=== PATIENT | male | born 1955 | race Caucasian/White ===

== ENCOUNTER 2019-05-05 | Emergency (ER) | payer MEDICARE ==
[2019-05-05 08:05] LABS: HEMATOCRIT 44.7 % (39.0-50.0); HEMOGLOBIN 14.9 g/dl (14.0-18.0); IMMATURE GRANULOCYTES 0.7 % (0.0-5.0); MEAN CORPUSCULAR HGB 28.7 pG CALC (26.0-32.0); MEAN CORPUSCULAR HGB CONC 33.3 g/L CALC (32.0-36.0); NEUT# 6.57 thou/uL (1.82-7.42); RED BLOOD COUNT 5.2 mill/uL (4.70-6.10); RED CELL DISTRI WIDTH 12.9 % (11.5-15.5)
[2019-05-05 08:32] LABS: ALBUMIN 4.2 g/dL (3.2-5.0); ALKALINE PHOSPHATASE 92 u/l (38-126); ANION GAP 20 (6-22 (CALC)); BILIRUBIN, TOTAL 1.5 mg/dL (0.0-1.4); BUN 17 mg/dL (8-23); BUN/CREATININE RATIO 19 (12-20 (CALC)); CARBON DIOXIDE 20 mmol/l (22-30); CHLORIDE 97 mmol/l (95-108); CREATININE 0.9 mg/dL (0.7-1.3); GFR > 60 ML/MIN (>=60 (CALC)); GFR FOR AFR.AMER. > 60 ML/MIN (>=60 (CALC)); POTASSIUM 4.1 mmol/l (3.5-5.1); SGOT/AST 29 u/l (19-48); SODIUM 133 mmol/l (137-146); TOTAL PROTEIN 7.5 g/dL (6.3-8.2)
[2019-05-05 10:07] LABS: URINE BILIRUBIN - DIPSTICK NEGATIVE (NEGATIVE); URINE BLOOD DIPSTICK NEGATIVE (NEGATIVE); URINE COLOR YELLOW; URINE GLUCOSE - DIPSTICK >=1000 mg/dL (NEGATIVE); URINE KETONE TRACE mg/dL (NEGATIVE); URINE LEUK ESTERASE NEGATIVE (NEGATIVE); URINE NITRITE - DIPSTICK NEGATIVE (Negative); URINE PH 5.5 (4.5-8.0); URINE PROTEIN - DIPSTICK NEGATIVE (NEG-TRACE); URINE SPECIFIC GRAVITY 1.015; URINE UROBILINOGEN - DIPSTICK 0.2 E.U./dL (0.2)
[2019-05-06] MEDS ORDERED: IBUPROFEN600 MG PO (05:13)
[2019-05-06] MEDS ORDERED: TRAMADOL HCL50 MG PO (05:13)
== END 2019-05-05 11:10 | disposition home or self-care (01) ==
PROVIDERS: Family Medicine
DX: E11.65 Type 2 diabetes mellitus with hyperglycemia (principal); J11.1 Influenza due to unidentified influenza virus with other respiratory manifestations; S01.81XA Laceration without foreign body of other part of head, initial encounter; S01.112A Laceration without foreign body of left eyelid and periocular area, initial encounter; R22.32 Localized swelling, mass and lump, left upper limb; E11.9 Type 2 diabetes mellitus without complications; W01.0XXA Fall on same level from slipping, tripping and stumbling without subsequent striking against object, initial encounter; Y92.481 Parking lot as the place of occurrence of the external cause; Z89.222 Acquired absence of left upper limb above elbow

== ENCOUNTER 2019-05-05 | Emergency (ER) | payer MEDICARE ==
[2019-05-06] MEDS ORDERED: TRAMADOL HCL50 MG PO (05:13)
[2019-05-06] MEDS ORDERED: IBUPROFEN600 MG PO (05:13)
== END 2019-05-05 21:18 | disposition home or self-care (01) ==
PROC: 0HQ1XZZ Repair Face Skin, External Approach (ICD-10-PCS; principal; 2019-05-05)
DX: S01.112A Laceration without foreign body of left eyelid and periocular area, initial encounter (principal); R22.32 Localized swelling, mass and lump, left upper limb; E11.9 Type 2 diabetes mellitus without complications; W01.0XXA Fall on same level from slipping, tripping and stumbling without subsequent striking against object, initial encounter; Y92.481 Parking lot as the place of occurrence of the external cause; Z89.222 Acquired absence of left upper limb above elbow

== ENCOUNTER 2019-05-06 | Emergency (ER) | payer MEDICARE ==
[2019-05-06] MEDS ORDERED: TRAMADOL HCL50 MG PO (05:13)
[2019-05-06] MEDS ORDERED: IBUPROFEN600 MG PO (05:13)
== END 2019-05-06 05:50 | disposition home or self-care (01) ==
DX: S42.295A Other nondisplaced fracture of upper end of left humerus, initial encounter for closed fracture (principal); S20.212A Contusion of left front wall of thorax, initial encounter; E11.9 Type 2 diabetes mellitus without complications; W01.0XXA Fall on same level from slipping, tripping and stumbling without subsequent striking against object, initial encounter

== ENCOUNTER 2020-06-05 05:56 | Emergency (ER) | payer MEDICARE ==
[~2020-06-05 05:56] MED LIST: IBUPROFEN600 MG PO; TRAMADOL HCL50 MG PO
[2020-06-05 06:46] LABS: IMMATURE GRANULOCYTES 0.7 % (0.0-5.0); MEAN CORPUSCULAR HGB CONC 31.6 g/dL CAL (32.0-36.0); NEUT# 21.71 thou/uL (1.82-7.42); RED BLOOD COUNT 4.68 mill/uL (4.70-6.10); RED CELL DISTRI WIDTH 14.3 % (11.5-15.5)
[2020-06-05 06:48] LABS: HEMOGLOBIN 11.7 g/dl (14.0-18.0); MEAN CELL VOLUME 79.1 fL CALC (80.0-100.0)
[2020-06-05 06:58] LABS: ALBUMIN 3.8 g/dL (3.2-5.0); ALKALINE PHOSPHATASE 82 u/l (38-126); AMYLASE 31 u/l (30-110); BILIRUBIN, TOTAL 1.8 mg/dL (0.0-1.4); BUN 19 mg/dL (8-23); BUN/CREATININE RATIO 26 (12-20 (CALC)); CARBON DIOXIDE 21 mmol/l (22-30); CHLORIDE 97 mmol/l (95-108); CREATININE 0.7 mg/dL (0.7-1.3); GFR > 60 ML/MIN (>=60 (CALC)); GFR FOR AFR.AMER. > 60 ML/MIN (>=60 (CALC)); LIPASE 23 u/l (23-300); POTASSIUM 4.3 mmol/l (3.5-5.1); TOTAL PROTEIN 7.3 g/dL (6.3-8.2)
[2020-06-05 07:00] LABS: ANION GAP 12 (6-22 (CALC)); SGOT/AST 616 u/l (19-48); SODIUM 126 mmol/l (137-146)
[2020-06-05 07:10] LABS: MYOGLOBIN 32 ng/mL (0 - 121)
[2020-06-05 08:24] LABS: URINE BILIRUBIN - DIPSTICK NEGATIVE (NEGATIVE); URINE BLOOD DIPSTICK NEGATIVE (NEGATIVE); URINE COLOR YELLOW; URINE GLUCOSE - DIPSTICK >=1000 mg/dL (NEGATIVE); URINE KETONE 15 mg/dL (NEGATIVE); URINE LEUK ESTERASE NEGATIVE (NEGATIVE); URINE PH 5.5 (4.5-8.0); URINE PROTEIN - DIPSTICK NEGATIVE (NEG-TRACE); URINE SPECIFIC GRAVITY 1.025
[2020-06-05 08:26] LABS: URINE NITRITE - DIPSTICK NEGATIVE (Negative)
[2020-06-05 17:35] VITALS: BP 154/73
== END 2020-06-05 17:35 ==
LOC: ED 05:56
PROVIDERS: Family Medicine
DX: K81.0 Acute cholecystitis (principal); I96 Gangrene, not elsewhere classified; D49.2 Neoplasm of unspecified behavior of bone, soft tissue, and skin; E11.9 Type 2 diabetes mellitus without complications; Z85.828 Personal history of other malignant neoplasm of skin; Z89.222 Acquired absence of left upper limb above elbow; Z20.822 Contact with and (suspected) exposure to COVID-19
CPT/HCPCS: Q9967